=== PATIENT | female | born 1990 | race African-American/Black ===

== ENCOUNTER 2017-03-02 15:21 | Emergency (ER) | payer MEDICAID ==
[~2017-03-02] VITALS: Ht 172.7 cm; Wt 113.1 kg
[2017-03-02 15:23] VITALS: BP 135/91
[2017-03-02] MEDS ORDERED: ACETAMINOPHEN 325 MG TABLET PO ONE (17:00)
[2017-03-02] MEDS ORDERED: IBUPROFEN 200 MG TABLET PO ONE (17:00)
[2017-03-02] MEDS ORDERED: IBUPROFEN 200 MG TABLET ONE (17:02)
[2017-03-02] MEDS ORDERED: ACETAMINOPHEN 325 MG TABLET ONE (17:02)
== END 2017-03-02 17:14 | disposition home or self-care (01) ==
LOC: ED 17:05
DX: S06.0X9A Concussion with loss of consciousness of unspecified duration, initial encounter (principal); S16.1XXA Strain of muscle, fascia and tendon at neck level, initial encounter; W22.8XXA Striking against or struck by other objects, initial encounter; Y93.89 Activity, other specified; Y92.009 Unspecified place in unspecified non-institutional (private) residence as the place of occurrence of the external cause; Y99.8 Other external cause status
CPT/HCPCS: 70450; 72125

== ENCOUNTER 2018-02-02 08:18 | Emergency (ER) | payer MEDICAID, OTHER ==
[~2018-02-02] VITALS: Ht 172.7 cm; Wt 112.5 kg
[2018-02-02 08:26] VITALS: BP 134/93
[2018-02-02] MEDS ORDERED: METHOCARBAMOL 750 MG TABLET PO ONE (09:00)
[2018-02-02] MEDS ORDERED: KETOROLAC 30 MG/1 ML IM ONE (09:00)
[2018-02-02] MEDS ORDERED: KETOROLAC 30 MG/1 ML ONE (09:01)
[2018-02-02] MEDS ORDERED: METHOCARBAMOL 750 MG TABLET ONE (09:01)
== END 2018-02-02 09:56 | disposition home or self-care (01) ==
LOC: ED 09:32
DX: S39.012A Strain of muscle, fascia and tendon of lower back, initial encounter (principal); F17.210 Nicotine dependence, cigarettes, uncomplicated; V89.2XXA Person injured in unspecified motor-vehicle accident, traffic, initial encounter; Y93.89 Activity, other specified; Y92.89 Other specified places as the place of occurrence of the external cause; Y99.8 Other external cause status
CPT/HCPCS: 72110; 96372; 99284; J1885